=== PATIENT | female | born 1980 | race Hispanic/Latino ===

== ENCOUNTER → 2018-08-07 | Day surgery (SDC) | payer BC ==
[~2018-08-07] MED LIST: FENTANYL CITRATE/PF 100MCG/2 ML INJ ONE; METHOCARBAMOL750 MG PO; MIDAZOLAM HCL 2 MG/2 ML VIAL ONE; OMEPRAZOLE40 MG PO; PROPOFOL IV EMULSION 10 MG/ML 50 ML VIAL ONE
--- OUTSIDE RECORDS SUMMARY | 2018-08-07 06:32 | XMS REPORT | Summary of Care ---
Author Author [facility] Outpatient Imaging [facility] Outpatient Imaging [facility] Address Unknown Phone Unavailable Encounter HQ Encntr_alias(FIN) [id number] Date(s): 11/14/16 - 11/14/16 [facility] Outpatient Imaging [facility] [address] [place], [place] [address]- Discharge Disposition: Home or Self Care Attending Physician: Ty Crisostomo MD Vital Signs No data available for this section Problem List Condition Effective Dates Status Health Status Informant Lumbar Active pain(Confirmed) Obesity(Confirmed) Active Allergies, Adverse Reactions, Alerts No Known Medication Allergies Medications No data available for this section Results No data available for this section Immunizations No data available for this section Procedures No data available for this section Social History Social History Type Response Smoking Status Unknown if ever smoked; Exposure to Tobacco Smoke None; Cigarette Smoking Last 365 Days No; Reg Smoking Cessation Counseling No Assessment and Plan No data available for this section
--- OUTSIDE RECORDS SUMMARY | 2018-08-07 06:32 | XMS REPORT | Continuity of Care Document ---
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 osteophyte/calcification and disc material. SL: [id number] 11/30/2016 - - Read by: Patel Helms MD Dictated Date/time: 11/30/16 17:10 Electronically Signed by: Patel Helms MD 11/30/16 17:20 FINAL REPORT [facility] Outpatient Imaging [facility] Vital Signs Vital Sign Value Date Comments Source Weight 90.909 07/19/2017 [facility] BMI Calculated 33.35 07/19/2017 [facility] Height 165.1 cm 07/19/2017 [facility] Heart Rate 80 07/19/2017 [facility] Systolic (mm Hg) 160 07/19/2017 [facility] Diastolic (mm Hg) 96 07/19/2017 [facility] Systolic (mm Hg) 122 05/24/2017 [facility] Diastolic (mm Hg) 80 05/24/2017 [facility] Heart Rate 88 05/24/2017 [facility] Weight 90.909 05/24/2017 [facility] Temperature Oral (F) 98.1 F 02/28/2017 [facility] Respitory Rate 17 02/28/2017 [facility] Systolic (mm Hg) 128 02/28/2017 [facility] Diastolic (mm Hg) 75 02/28/2017 [facility] Heart Rate 93 02/28/2017 [facility] Systolic (mm Hg) 116 02/28/2017 [facility] Diastolic (mm Hg) 65 02/28/2017 [facility] Respitory Rate 17 02/28/2017 [facility] Temperature Oral (F) 98.1 F 02/28/2017 [facility] Heart Rate 80 02/28/2017 [facility] Weight 97.727 02/22/2017 [facility] BMI Calculated 35.85 02/22/2017 [facility] Height 165.1 cm 02/22/2017 [facility] BMI Calculated 33.35 02/04/2017 [facility] Weight 90.909 02/04/2017 [facility] Height 165.1 cm 02/04/2017 [facility] Encounters Location Location Details Encounter Type Encounter Number Reason For Visit Attending Provider ADM Date DC Date Status Source Outpatient [id number] LUIS RUIZ JR 11/09/[address] [facility] Outpatient [facility] Outpt Diag Services [id number] Luis Ruiz Jr 11/14/2016 11/15/2016 [facility] Outpatient Imaging [facility] Outpatient Imaging [facility] Outpt Diag Services [id number] Luis Ruiz Jr 11/30/2016 12/01/2016 [facility] Outpatient Imaging [facility] Outpatient [id number] LUIS RUIZ JR 01/18/2017 Active [facility] Outpatient [id number] LUIS RUIZ JR 02/27/2017 Active [facility] Inpatient [id number] Luis Ruiz Jr 02/27/2017 02/28/2017 [facility] Outpatient [id number] RENETTA DYKES 03/14/2017 Active [facility] Outpatient [id number] LUIS RUIZ JR 04/12/2017 Active [facility] Outpatient [id number] LUIS RUIZ JR 04/19/2017 Active [facility] [place] [facility] [id number] Luis Ruiz Jr 05/10/2017 06/09/2017 [facility] Outpatient [id number] LUIS RUIZ JR 05/24/2017 Active [facility] Outpatient [id number] Emili Ndiaye 05/24/2017 05/25/2017 [facility] Out[facility] Diag Services [id number] Luis Ruiz Jr 05/25/2017 05/26/2017 [facility] [place] [facility] [id number] Luis Ruiz Jr 06/09/2017 07/09/2017 [facility] Phone Message [id number] 06/19/2017 06/21/2017 [facility] Phone Message [id number] 06/20/2017 06/22/2017 [facility] Phone Message [id number] 07/11/2017 07/13/2017 [facility] Phone Message [id number] 07/13/2017 07/15/2017 [facility] Outpatient [id number] LUIS RUIZ JR 07/19/2017 Active [facility] Outpatient [id number] Emili Ndiaye 07/19/2017 07/20/2017 [facility] Outpatient Imaging [facility] Out Dia Services [id number] Luis Ruiz Jr 08/04/2017 08/05/2017 [facility] Phone Message [id number] 08/08/2017 08/10/2017 [facility] Phone Message [id number] 08/15/2017 08/17/2017 [facility] Outpatient [id number] LUIS RUIZ JR 08/16/2017 Active [facility] Ambulatory Pre-Reg [id number] Emilicharo OrtizNdiaye 08/16/2017 08/16/2017 [facility] Outpatient [id number] LUIS RUIZ JR 08/30/2017 Active [facility] Ambulatory Pre-Reg [id number] Emili Ndiaye 08/30/2017 08/30/2017 [facility] Outpatient [id number] LUIS RUIZ JR 02/21/2018 Active [facility] Procedures Procedure Code Date Perfomer Comments Source C5-T1 laminoplasty<sup>1</sup> [id number] 02/27/2017 C5-T1 laminoplasty [facility] C5-T1 laminoplasty<sup>1</sup> [id number] 02/27/2017 C5-T1 laminoplasty [facility] Outpatient Imaging [facility] C5-T1 laminoplasty<sup>1</sup> [id number] 02/27/2017 C5-T1 laminoplasty [facility] [place] section<sup>2</sup> [id number] 2013 [facility] TL - Tubal ligation [id number] [facility] section<sup>2</sup> [id number] 2013 [facility] TL - Tubal ligation [id number] [facility] Outpatient [facility] section<sup>2</sup> [id number] 2013 [facility] [place] TL - Tubal ligation [id number] [facility] [place] section<sup>1</sup> [id number] 2013 [facility] TL - Tubal ligation [id number] [facility]
--- OUTSIDE RECORDS SUMMARY | 2018-08-07 06:32 | XMS REPORT | Clinical Summary ---
Author Author [employer] [facility] [employer] Address Unknown Phone Unavailable Care Team Providers Care Business Control Manager Name Role Phone Emili Ndiaye MD PCP Allergies No Known Allergies Medications End Date Status Medication Sig Dispensed Refills Start Date 11/01/2017 Discontinued ibuprofen (ADVIL,MOTRIN) Take 200 mg 0 200 MG tablet by mouth every 12 (twelve) hours as needed for mild pain. LD 11/09/2017 amoxicillin-pot Take 1 tablet 20 tablet 0 clavulanate (AUGMENTIN) by mouth 8 875-125 mg per tablet every 12 (twelve) hours for 10 days. 11/09/2017 traMADol (ULTRAM) 50 mg Take 1 tablet 40 tablet 0 tablet (50 mg total) 8 by mouth every 6 (six) hours as needed for moderate pain for up to 10 days. 03/01/2018 Discontinued ondansetron ODT (ZOFRAN Take 1 tablet 10 tablet 0 ODT) 8 MG disintegrating (8 mg total) 8 tablet by mouth every 8 (eight) hours as needed for nausea or vomiting for up to 10 doses. Active Problems Problem Noted Date Mass in neck 10/31/2017 Encounters Care Team Description Date Type Specialty Zhanna Wagoner MD Anemia, normocytic normochromic 07/03/2018 Lab Lab Zhanna Wagoner MD Anemia, normocytic normochromic (Primary Dx) 07/03/2018 Office Visit Oncology Aditya Garces MD Lymphadenopathy 05/31/2018 Hospital Radiology Encounter Aditya Garces MD Lymphadenopathy 05/31/2018 Lab Lab Naz Waldron MA Lymphadenopathy (Primary Dx) 05/31/2018 Orders Only Oncology Aditya Garces MD 03/15/2018 Telephone Oncology Aditya Garces MD Lymphadenopathy (Primary Dx); Cervical lymphadenopathy 03/01/2018 Office Visit Oncology Aditya Garces MD 02/23/2018 Telephone Oncology Daniel Velazco MD Neck mass (Primary Dx) 12/04/2017 Office Visit Otolaryngology Daniel Velazco MD 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 General Internal Medicine - Encounter 11/01/2017 Gabrielle Greer RN 10/30/2017 Orders Only Otolaryngology Gabrielle Greer RN 10/24/2017 Orders Only Otolaryngology Daniel Velazco MD Neck mass (Primary Dx) 10/09/2017 Office Visit Otolarynjonilogy Aditya Garces MD Lymphadenopathy (Primary Dx) 09/28/2017 Office Visit Oncology Aditya Garces MD 09/27/2017 Telephone Oncology Aditya Garces MD Lymph node enlargement 09/22/2017 Hospital Radiology Encounter Aditya Garces MD Lymph node enlargement (Primary Dx) 09/19/2017 Transcribe Radiology Orders Aditya Garces MD 09/18/2017 Telephone Oncology Naz Waldron MA Cervical lymphadenopathy (Primary Dx) 09/15/2017 Orders Only Oncology Aditya Garces MD 09/14/2017 Telephone Oncology Aditya Garces MD Swelling of lymph node; Abnormal CT scan, neck 09/13/2017 Lab Lab Aditya Garces MD Swelling of lymph node; Abnormal CT scan, neck 09/12/2017 Hospital Radiology Encounter Aditya Garces MD Swelling of lymph node (Primary Dx); Abnormal CT scan, neck; Cervical lymphadenopathy 09/05/2017 Consult Oncology after 08/06/2017 Social History Date Tobacco Use Types Packs/Day Years Used Never Smoker Smokeless Tobacco: Never Used Alcohol Use Drinks/Week oz/Week Comments No Sex Assigned at Date Recorded Not on file Industry Job Start Date Occupation Not on file Not on file Not on file Travel End Travel History Travel Start No recent travel history available. Last Filed Vital Signs Time Taken Vital Sign Reading 07/03/2018 10:11 AM [facility] Blood Pressure 156/87 07/03/2018 10:11 AM [facility] [facility] Pulse 74 07/03/2018 10:11 AM [facility] [facility] [facility] Temperature 36.4 C (97.5 F) 11/01/2017 8:15 AM CDT Respiratory Rate 16 11/01/2017 8:15 AM CDT Oxygen Saturation 95% - Inhaled Oxygen - Concentration 07/03/2018 10:11 AM [facility] Weight 96.8 kg (213 lb 8 oz) 07/03/2018 10:11 AM [facility] Height 165.1 cm (5' 5") 07/03/2018 10:11 AM [facility] Body Mass Index 35.53 Plan of Treatment Health Maintenance Due Date Last Done Comments CERVICAL CANCER SCREENING 2000 INFLUENZA VACCINE 01/10/2018 04/05/2013 Implants Device Identifier Shelf Expiration Date Model / Serial / Lot Implanted Type Area Manufactur er [id number] / / Drain Wnd 20cm 7mm Flat Hbls Full Surgical N/A: N/A BARD Perfrtn Breana - [id number] Implants; MEDICAL Implanted: 10/31/2017 (Quantity not Expanders; DIVISION on file) Extenders; Surgical Wires Procedures Comments Procedure Name Priority Date/Time Associated Diagnosis HEMOGLOBIN Routine 07/03/2018 Anemia, normocytic ELECTROPHORESIS WITH HGB 11:25 AM [facility] [facility] normochromic HCT AND RBC SERUM ELECTROPHORESIS Routine 07/03/2018 Anemia, normocytic 11:25 AM [employer] normochromic RETICULOCYTE COUNT Routine 07/03/2018 Anemia, normocytic 11:25 AM [employer] normochromic VITAMIN B12 LEVEL Routine 07/03/2018 Anemia, normocytic 11:25 AM [employer] normochromic THYROID STIMULATING Routine 07/03/2018 Anemia, normocytic HORMONE 11:25 AM [employer] normochromic FOLATE LEVEL Routine 07/03/2018 Anemia, normocytic 11:25 AM [employer] normochromic TOTAL IRON BINDING Routine 07/03/2018 Anemia, normocytic CAPACITY 11:25 AM [employer] [facility] normochromic FERRITIN LEVEL Routine 07/03/2018 Anemia, normocytic 11:25 AM [employer] normochromic HC COMPLETE BLD COUNT Routine 07/03/2018 Anemia, normocytic W/AUTO DIFF 11:25 AM [facility] [facility] [facility] normochromic CT CHEST W CONTRAST Routine 05/31/2018 Lymphadenopathy ABDOMEN W CONTRAST PELVIS 12:07 PM [employer] [facility] W CONTRAST ESTIMATED GFR Routine 05/31/2018 10:33 AM [facility] [facility] BETA-2 MICROGLOBULIN Routine 05/31/2018 Lymphadenopathy 10:33 AM [employer] [facility] SEDIMENTATION RATE Routine 05/31/2018 Lymphadenopathy 10:33 AM [employer] HC COMPLETE BLD COUNT Routine 05/31/2018 Lymphadenopathy W/AUTO DIFF 10:33 AM [facility] [facility] [facility] URIC ACID LEVEL Routine 05/31/2018 Lymphadenopathy 10:33 AM [facility] [facility] PHOSPHORUS LEVEL Routine 05/31/2018 Lymphadenopathy 10:33 AM [employer] LDH Routine 05/31/2018 Lymphadenopathy 10:33 AM [facility] [facility] COMPREHENSIVE METABOLIC Routine 05/31/2018 Lymphadenopathy PANEL 10:33 AM [facility] [facility] GGT Routine 05/31/2018 Lymphadenopathy 10:33 AM [facility] [facility] [facility] FUNGUS SMEAR Routine 10/31/2017 6:23 PM CDT AFB STAIN Routine 10/31/2017 6:23 PM CDT AFB CULTURE Routine 10/31/2017 6:23 PM CDT GRAM STAIN Routine 10/31/2017 6:23 PM CDT FUNGUS CULTURE Routine 10/31/2017 6:23 PM CDT AEROBIC CULTURE Routine 10/31/2017 6:23 PM CDT ANAEROBIC CULTURE Routine 10/31/2017 6:23 PM CDT SURGICAL PATHOLOGY Routine 10/31/2017 REQUEST 2:30 PM CDT FLOW CYTOMETRY EVALUATION Routine 10/31/2017 2:30 PM CDT ANAEROBIC CULTURE Routine 10/31/2017 1:23 PM CDT GRAM STAIN Routine 10/31/2017 1:23 PM CDT AEROBIC CULTURE Routine 10/31/2017 1:23 PM CDT RI AN ELECTIVE Routine 10/31/2017 ENDOTRACHEAL AIRWAY 12:52 PM CDT Procedure Note - Antoinette Menchaca MD - 10/31/2017 12:52 PM CDT Airway Date/Time: 10/31/2017 12:45 PM Performed by: ANTOINETTE MENCHACA Authorized by: ANTOINETTE MENCHACA Location: OR Urgency: Elective Difficult Airway: Yes Anesthesio logist: ANTOINETTE MENCHACA Performed by: anesthesio logist Preoxygena aminata with 100% O2: Yes C-spine Precaution s Maintained Throughout : Yes Mask Ventilatio n: Easy mask Final Airway Type: Endotrache al airway Final Endotrache al Airway: ETT Cuffed: Yes Technique Used: Video laryngosco py Devices/Me thods Used in Placement: Intubatin g stylet Insertion Site: Oral Blade Type: Jessica Laryngosco pe Blade/Vide olaryngosc ope Blade Size: 3 ETT Size (mm): 7.0 Cuff at minimum occlusion pressure: Yes Measured from: Lips ETT to Lips (cm): 22 Placement Verified by: CO2 detection, direct visualizat ion, equal breath sounds and fiber optic visualizat ion Laryngosco pic view: Grade I - full view of glottis Modified RSI: Yes Number of Attempts at Approach: 1 DISSECTION, NECK, 10/31/2017 Mass in neck MODIFIED RADICAL 12:45 PM CDT Case Notes TF 1130 REQ 0800 START POSSIBLE EXTENDED RECOVERY NEEDED Special Needs TF 1130 REQ 0800 START POSSIBLE EXTENDED RECOVERY NEEDED ZZESTIMATED GFR STAT 10/31/2017 11:28 AM CDT BASIC METABOLIC PANEL STAT 10/31/2017 11:28 AM CDT HC COMPLETE BLD COUNT STAT 10/31/2017 W/AUTO DIFF 11:09 AM CDT SURGICAL PATHOLOGY Routine 09/22/2017 REQUEST 2:45 PM CDT GRAM STAIN Routine 09/22/2017 2:36 PM CDT ANAEROBIC CULTURE Routine 09/22/2017 2:36 PM CDT AEROBIC CULTURE Routine 09/22/2017 2:36 PM CDT US NEEDLE BIOPSY Routine 09/22/2017 Lymph node enlargement 1:21 PM CDT CYTOLOGY Routine 09/22/2017 (NON-GYNECOLOGICAL) 12:45 PM CDT REQUEST CYTOLOGY Routine 09/22/2017 (NON-GYNECOLOGICAL) 12:45 PM CDT REQUEST FLOW CYTOMETRY EVALUATION Routine 09/22/2017 12:45 PM CDT ZZESTIMATED GFR Routine 09/13/2017 4:01 PM CDT PROTHROMBIN TIME WITH INR Routine 09/13/2017 Swelling of lymph node 4:[address] scan, neck PARTIAL THROMBOPLASTIN Routine 09/13/2017 Swelling of lymph node TIME (PTT) 4:[address] scan, neck SEDIMENTATION RATE Routine 09/13/2017 Swelling of lymph node 4:[address] scan, neck BETA-2 MICROGLOBULIN Routine 09/13/2017 Swelling of lymph node 4:[address] scan, neck HC COMPLETE BLD COUNT Routine 09/13/2017 Swelling of lymph node W/AUTO DIFF 4:[address] scan, neck URIC ACID LEVEL Routine 09/13/2017 Swelling of lymph node 4:[address] scan, neck PHOSPHORUS LEVEL Routine 09/13/2017 Swelling of lymph node 4:[address] scan, neck LDH Routine 09/13/2017 Swelling of lymph node 4:[address] scan, neck COMPREHENSIVE METABOLIC Routine 09/13/2017 Swelling of lymph node PANEL 4:[address] scan, neck GGT Routine 09/13/2017 Swelling of lymph node 4:[address] scan, neck PET CT SKULL BASE TO MID Routine 09/12/2017 Swelling of lymph node THIGH 12:[address] scan, neck POC GLUCOSE Routine 09/12/2017 11:13 AM CDT after 08/06/2017 Results * Hemoglobin electrophoresis with HGB HCT and RBC (07/03/2018 11:25 AM [employer] [facility]) Hemoglobin A 97.7 96.0 - 99.0 % [facility] Hemoglobin A2 2.3 0.0 - 3.5 % [facility] Hemoglobin See Comment [facility] electrophoresis Comment: HOSPITAL interpretation No abnormal hemoglobins are detected. This is a normal hemoglobin electrophoresis pattern. Hemoglobin See CommentComment: Sofia Bradford [facility] electrophoresis reviewed MD Tasha, DREAD [place], HOSPITAL by: Charlee Slater MD, Barbie Vázquez MD RBC for electrophoresis 4.10 (L) 4.20 - 5.50 m/uL [facility] HGB for electrophoresis 11.0 (L) 12.0 - 16.0 g/dL [facility] HCT for electrophoresis 34.3 (L) 37.0 - 47.0 % [facility] Specimen Blood Performing Organization Address City/State/Zipcode Phone Number [facility] DEPARTMENT OF [address] [place] [address] PATHOLOGY AND GENOMIC MEDICINE [address] * Total iron binding capacity (07/03/2018 11:25 AM [facility] [facility] [facility]) Iron level 67 37 - 145 ug/dL [facility] Iron binding capacity 493 (H) 200 - 400 ug/dL [facility] % Saturation 13.6 (L) 15.0 - 38.0 % [facility] Specimen Plasma specimen Performing Organization Address [facility] Phone Number [facility] [place] [address] PATHOLOGY AND GENOMIC MEDICINE [address] * Reticulocyte count (07/03/2018 11:25 AM [facility] [facility] [facility]) Retic %, auto 1.7 0.5 - 2.1 % [facility] Retic absolute, auto 0.0709 0.0210 - 0.1155 m/uL [facility] Specimen Blood Performing Organization Address [facility] Phone Number [facility] [place] [address] PATHOLOGY AND [facility] MEDICINE [address] * CBC with platelet and differential (07/03/2018 11:25 AM [employer] [facility]) Only the most recent of 4 results within the time period is included. WBC 7.57 4.50 - 11.00 k/uL [facility] RBC 4.10 (L) 4.20 - 5.50 m/uL [facility] HGB 11.0 (L) 12.0 - 16.0 g/dL [facility] HCT 34.3 (L) 37.0 - 47.0 % [facility] MCV 83.7 82.0 - 100.0 fL [facility] MCH 26.8 (L) 27.0 - 34.0 pg [facility] MCHC 32.1 31.0 - 37.0 g/dL [facility] RDW - SD 45.5 37.0 - 55.0 fL [facility] MPV 11.2 8.8 - 13.2 fL [facility] Platelet count 313 150 - 400 k/uL [facility] Nucleated RBC 0.00 /100 WBC [facility] Neutrophils 61.1 39.0 - 69.0 % [facility] Lymphocytes 26.2 25.0 - 45.0 % [facility] Monocytes 8.9 0.0 - 10.0 % [facility] Eosinophils 3.0 0.0 - 5.0 % [facility] Basophils 0.4 0.0 - 1.0 % [facility] Immature granulocytes 0.4Comment: "Immature 0.0 - 1.0 % [facility] granulocytes" (promyelocytes, HOSPITAL myelocytes, metamyelocytes) Specimen Blood Performing Organization Address [place]/[facility] [place] [address] PATHOLOGY AND GENOMIC MEDICINE [address] * Thyroid stimulating hormone (07/03/2018 11:25 AM [facility] [facility] [facility]) TSH 1.49 0.27 - 4.20 uIU/mL [facility] Specimen Plasma specimen Performing Organization Address [facility] [place] [address] PATHOLOGY AND [facility] MEDICINE [address] * Serum electrophoresis (07/03/2018 11:25 AM [employer] [facility]) Protein 7.2 6.3 - 8.3 g/dL [facility] Comment: HOSPITAL [place] 4.6-7.0 g/dL 1 week 4.4-7.6 g/dL 7 months-1year 5.1-7.3 g/dL 1-2 years5.6-7 .5 g/dL >3 years6.0-8 .0 g/dL 18-150 6.3-8.3 g/dL SPE albumin 4.67 4.00 - 5.30 g/dL [facility] SPE alpha 1 0.15 0.10 - 0.25 g/dL [facility] SPE alpha 2 0.68 0.58 - 0.84 g/dL [facility] SPE beta 0.94 0.50 - 1.10 g/dL [facility] SPE gamma 0.77 0.60 - 1.30 g/dL [facility] SPE extended See CommentComment: An [facility] interpretation essentially normal serum [facility] protein study. SPE interpretation See CommentComment: Sia Mello MD; Samara Snow, PhD; [facility] René Rouse MD Specimen Serum Performing Organization Address [facility] Phone Number [facility] [place] [address] PATHOLOGY AND GENOMIC MEDICINE [address] * Folate level (07/03/2018 11:25 AM [facility] [facility] [facility]) Folate 11.8 4.8 - 24.2 ng/mL [facility] Specimen Serum Performing Organization Address City/State/Zipcode Phone Number [facility] [place] [address] PATHOLOGY AND GENOMIC MEDICINE [address] * Ferritin level (07/03/2018 11:25 AM [employer] [facility]) Ferritin level <13 (A) 13 - 150 ng/mL [facility] Specimen Plasma specimen Performing Organization Address City/[facility]/Zipcode Phone Number [facility] [place] [address] PATHOLOGY AND GENOMIC MEDICINE [address] * Vitamin B12 level (07/03/2018 11:25 AM [employer] [facility]) Vitamin B12 789 211 - 946 pg/mL [facility] Comment: HOSPITAL Significant overlap exists between normal and deficiency states. However, most patients with deficiencies will have Serum B12 <200 pg/mL. Specimen Serum Performing Organization Address City/[facility] Phone Number [facility] [place] [address] PATHOLOGY AND GENOMIC MEDICINE [address] * CT Chest W Contrast Abdomen W Contrast Pelvis W Contrast (05/31/2018 12:07 PM [employer] [facility] [facility]) Narrative Performed At EXAMINATION:CT CHEST W CONTRAST ABDOMEN W CONTRAST PELVIS W CONTRAST RADIANT CLINICAL HISTORY:R59.1 Generalized enlarged lymph nodes, r59.1 COMPARISON:PET/CT skull base to mid thigh from September 12, 2017 TECHNIQUE:CT of the chest, abdomen and pelvis with intravenous contrast. CT imaging was performed with iterative reconstruction techniques and/or automated exposure control to reduce radiation dose. FINDINGS: CHEST: LUNGS and PLEURA:Lungs and airways are normal without focal abnormality. Pleural spaces are clear. HEART and MEDIASTINUM:Thoracic aorta nonaneurysmal. No mediastinal or hilar adenopathy. Heart and pericardium within normal limits. ABDOMEN AND PELVIS: HEPATOBILIARY:No focal hepatic lesions. No biliary ductal dilation. Gallbladder is unremarkable. SPLEEN:No splenomegaly. PANCREAS:No focal masses or ductal dilation. ADRENALS:No adrenal nodules. KIDNEYS:No hydronephrosis, stones or solid masses. GI TRACT:Visualized portions of the bowel demonstrate no distention or wall thickening. The appendix is normal. There is a small fat-containing umbilical hernia. PERITONEUM/RETROPERITONEUM:No free air or fluid. No lymphadenopathy. PELVIC ORGANS/BLADDER:Unremarkable. BONES AND SOFT TISSUES:Unremarkable. IMPRESSION: No lymphadenopathy is identified in the thorax, abdomen, or pelvis. Additional findings as above. Edilberto Matamoros MD Diet Kitchen Cook, PGY - 2 I personally reviewed the images and the resident's findings and agree with the final report. [id number] Procedure Note Interface, Radiology Results Incoming - 05/31/2018 3:53 PM [facility] [facility] [facility] EXAMINATION: CT CHEST W CONTRAST ABDOMEN W CONTRAST PELVIS W CONTRAST CLINICAL HISTORY: R59.1 Generalized enlarged lymph nodes, r59.1 COMPARISON: PET/CT skull base to mid thigh from September 12, 2017 TECHNIQUE: CT of the chest, abdomen and pelvis with intravenous contrast. CT imaging was performed with iterative reconstruction techniques and/or automated exposure control to reduce radiation dose. FINDINGS: CHEST: LUNGS and PLEURA: Lungs and airways are normal without focal abnormality. Pleural spaces are clear. HEART and MEDIASTINUM: Thoracic aorta nonaneurysmal. No mediastinal or hilar adenopathy. Heart and pericardium within normal limits. ABDOMEN AND PELVIS: HEPATOBILIARY: No focal hepatic lesions. No biliary ductal dilation. Gallbladder is unremarkable. SPLEEN: No splenomegaly. PANCREAS: No focal masses or ductal dilation. ADRENALS: No adrenal nodules. KIDNEYS: No hydronephrosis, stones or solid masses. GI TRACT: Visualized portions of the bowel demonstrate no distention or wall thickening. The appendix is normal. There is a small fat-containing umbilical hernia. PERITONEUM/RETROPERITONEUM: No free air or fluid. No lymphadenopathy. PELVIC ORGANS/BLADDER: Unremarkable. BONES AND SOFT TISSUES: Unremarkable. IMPRESSION: No lymphadenopathy is identified in the thorax, abdomen, or pelvis. Additional findings as above. Edilberto Matamoros MD Diet [employer] Cook, PGY - 2 I personally reviewed the images and the resident's findings and agree with the final report. [facility]-[id number] Performing Organization Address City/State/Zipcode Phone Number [facility] [address] [place] [address] * Estimated GFR (05/31/2018 10:33 AM [employer]) Estimated GFR >=90 mL/min/1.73 m2 [facility] Comment: HOSPITAL CatergoryUnitsInte rpretation G1 >=90 Normal or high G2 60-89Mildly decreased [id number] Mildly to moderately decreased [id number] Moderately to severely decreased G4 15-29Severely decreased G5 <15Kidney failure The eGFR was calculated using the Chronic Kidney Disease Epidemiology Collaboration (CKD-EPI) equation. Interpretation is based on recommendations of the National Kidney Foundation-Kidney Disease Outcomes Quality Initiative (NKF-KDOQI) published in 2014. Specimen Plasma specimen Performing Organization Address City/[facility] Phone Number [facility] [place] [address] PATHOLOGY AND [facility] MEDICINE [address] * Sedimentation rate (05/31/2018 10:33 AM [employer]) Only the most recent of 2 results within the time period is included. Sedimentation rate 14 0 - 20 mm/hr [facility] Specimen Blood Performing Organization Address City/[facility] Phone Number [facility] [place] [address] PATHOLOGY AND GENOMIC MEDICINE [address] * Uric acid level (05/31/2018 10:33 AM [employer]) Only the most recent of 2 results within the time period is included. Uric acid 4.4 2.4 - 5.7 mg/dL [facility] Specimen Plasma specimen Performing Organization Address City/[facility] Phone Number [facility] [place] [address] PATHOLOGY AND GENOMIC MEDICINE [address] * Phosphorus level (05/31/2018 10:33 AM [employer]) Only the most recent of 2 results within the time period is included. Phosphorus 3.1 2.4 - 4.5 mg/dL [facility] Specimen Plasma specimen Performing Organization Address City/[facility] Phone Number [facility] [place] [address] PATHOLOGY AND GENOMIC MEDICINE [address] * LDH (05/31/2018 10:33 AM [employer]) Only the most recent of 2 results within the time period is included. LDH 167 87 - 225 U/L [facility] Specimen Plasma specimen Performing Organization Address City/[facility] Phone Number [facility] DEPARTMENT OF [address] [place] [address] PATHOLOGY AND GENOMIC MEDICINE [address] * GGT (05/31/2018 10:33 AM [employer]) Only the most recent of 2 results within the time period is included. GGT 14 0 - 39 U/L [facility] Specimen Plasma specimen Performing Organization Address City/[facility] Phone Number [facility] [place] [address] PATHOLOGY AND GENOMIC MEDICINE [address] * Beta-2 microglobulin (05/31/2018 10:33 AM [employer]) Only the most recent of 2 results within the time period is included. Beta-2 microglobulin 1.4 0.8 - 2.2 mg/L [facility] Specimen Plasma specimen Performing Organization Address [place]/[facility] Phone Number [facility] DEPARTMENT OF [address] [place] [address] PATHOLOGY AND GENOMIC MEDICINE [address] * Comprehensive metabolic panel (05/31/2018 10:33 AM [employer]) Only the most recent of 2 results within the time period is included. Sodium 143 135 - 148 mEq/L [facility] Potassium 3.7 3.5 - 5.0 mEq/L [facility] Chloride 106 98 - 112 mEq/L [facility] CO2 22 (L) 24 - 31 mEq/L [facility] Anion gap 15@ANIO 7 - 15 mEq/L [facility] BUN 6 6 - 20 mg/dL [facility] Creatinine 0.52 0.50 - 0.90 mg/dL [facility] Glucose 103 (H) 65 - 99 mg/dL [facility] Calcium 9.0 8.3 - 10.2 mg/dL [facility] [facility] Protein 7.0 6.3 - 8.3 g/dL [facility] Comment: [facility] 4.6-7.0 g/dL 1 week 4.4-7.6 g/dL 7 months-1year 5.1-7.3 g/dL 1-2 years5.6-7 .5 g/dL >3 years6.0-8 .0 g/dL 18-150 6.3-8.3 g/dL Albumin 3.9 3.5 - 5.0 g/dL [facility] A/G ratio 1.3 0.7 - 3.8 [facility] Alkaline phosphatase 75 35 - 104 U/L [facility] AST 27 10 - 35 U/L [facility] ALT 45 5 - 50 U/L [facility] Total bilirubin 0.3 0.0 - 1.2 mg/dL [facility] Specimen Plasma specimen Performing Organization Address [facility] Phone Number [facility] [place] [address] PATHOLOGY AND GENOMIC MEDICINE [address] * Fungus smear (10/31/2017 6:23 PM CDT) Fungus smear No fungi observed. [facility] DEPARTMENT OF Comment: PATHOLOGY AND Specimen Information GENOMIC MEDICINE Specimen Source: Tissue Specimen Site: Right neck lymph node Specimen Tissue Performing Organization Address [facility] Phone Number [facility] [place] [address] PATHOLOGY AND GENOMIC MEDICINE * AFB culture (10/31/2017 6:23 PM CDT) AFB culture isolate No growth after 6 weeks of [facility] DEPARTMENT OF incubation. PATHOLOGY AND Comment: GENOMIC MEDICINE Specimen Information Specimen Source: Tissue Specimen Site: Right neck lymph node Specimen Tissue Performing Organization Address [facility] Phone Number [facility] [place] [address] PATHOLOGY AND GENOMIC MEDICINE * Aerobic culture (10/31/2017 6:23 PM CDT) Only the most recent of 3 results within the time period is included. Aerobic culture isolate No growth after 3 days. [facility] DEPARTMENT OF Comment: PATHOLOGY AND Specimen Information GENOMIC MEDICINE Specimen Source: Tissue Specimen Site: Right neck lymph node Specimen Tissue Performing Organization Address [facility] Phone Number [facility] [place] [address] PATHOLOGY AND GENOMIC MEDICINE * Gram stain (10/31/2017 6:23 PM CDT) Only the most recent of 3 results within the time period is included. Gram stain isolate Occasional WBC's [facility] DEPARTMENT OF No organisms seen PATHOLOGY AND Comment: GENOMIC MEDICINE Specimen Information Specimen Source: Tissue Specimen Site: Right neck lymph node Specimen Tissue Performing Organization Address City/[facility]/Zipcode Phone Number [facility] DEPARTMENT OF [address] [place] [address] PATHOLOGY AND GENOMIC MEDICINE * AFB stain (10/31/2017 6:23 PM CDT) AFB stain No acid fast bacilli (AFB) [facility] DEPARTMENT OF seen. PATHOLOGY AND Comment: GENOMIC MEDICINE Specimen Information Specimen Source: Tissue Specimen Site: Right neck lymph node Specimen Tissue Performing Organization Address City/[facility] Phone Number [facility] [place] [address] PATHOLOGY AND GENOMIC MEDICINE * Fungus culture (10/31/2017 6:23 PM CDT) Fungus culture isolate No growth after 4 weeks of [facility] DEPARTMENT OF incubation. PATHOLOGY AND Comment: GENOMIC MEDICINE Specimen Information Specimen Source: Tissue Specimen Site: Right neck lymph node Specimen Tissue Performing Organization Address City/[facility] Phone Number [facility] DEPARTMENT OF [address] [place] [address] PATHOLOGY AND GENOMIC MEDICINE * Anaerobic culture (10/31/2017 6:23 PM CDT) Only the most recent of 3 results within the time period is included. Anaerobic culture isolate No anaerobic organisms [facility] DEPARTMENT OF isolated. PATHOLOGY AND Comment: GENOMIC MEDICINE Specimen Information Specimen Source: Tissue Specimen Site: Right neck lymph node Specimen Tissue Performing Organization Address City/[facility] Phone Number [facility] DEPARTMENT OF [address] [place] [address] PATHOLOGY AND GENOMIC MEDICINE * Flow cytometry evaluation (10/31/2017 2:30 PM CDT) Only the most recent of 2 results within the time period is included. [facility] DEPARTMENT OF PATHOLOGY AND GENOMIC MEDICINE Flow cytometry evaluation See link below for PDF Lab [facility] DEPARTMENT OF Report PATHOLOGY AND GENOMIC MEDICINE Performing Organization Address City/[facility]/Zipcode Phone Number [facility] DEPARTMENT OF [address] [place] [address] PATHOLOGY AND GENOMIC MEDICINE * Surgical pathology request (10/31/2017 2:30 PM CDT) Only the most recent of 2 results within the time period is included. [facility] DEPARTMENT OF PATHOLOGY AND GENOMIC MEDICINE Surgical pathology report See link below for PDF Lab [facility] DEPARTMENT OF Report PATHOLOGY AND GENOMIC MEDICINE Result status This is Final Report to [facility] DEPARTMENT OF [id number] PATHOLOGY AND GENOMIC MEDICINE Performing Organization Address [facility] [address] PATHOLOGY AND GENOMIC MEDICINE * Estimated GFR (10/31/2017 11:28 AM CDT) Only the most recent of 2 results within the time period is included. GFR Non Af Amer >90 mL/min/1.73 m2 [facility] DEPARTMENT OF PATHOLOGY AND GENOMIC MEDICINE GFR Af Amer >90 mL/min/1.73 m2 [facility] DEPARTMENT OF Comment: PATHOLOGY AND Chronic kidney disease: <60 GENOMIC MEDICINE mL/min/1.73m2 Kidney failure: <15 mL/min/1.73m2 The estimated GFR is calculated from the IDMS-traceable Modification of Diet in Renal Disease Equation. The accuracy of the calculation is poor when the creatinine is normal. Calculated values >90 mL/min/1.73m2 are not reported. This equation has not been validated in children (<18 years), women, the elderly (>70 years), or ethnic groups other than Caucasians and Americans. Specimen Plasma specimen Performing Organization Address City/[facility] Cent[facility] [address] PATHOLOGY AND [facility] MEDICINE * Basic metabolic panel (10/31/2017 11:28 AM CDT) Sodium 140 135 - 148 mEq/L [facility] DEPARTMENT OF PATHOLOGY AND GENOMIC MEDICINE Potassium 4.4 3.5 - 5.0 mEq/L [facility] DEPARTMENT OF PATHOLOGY AND GENOMIC MEDICINE Chloride 101 98 - 112 mEq/L [facility] DEPARTMENT OF PATHOLOGY AND GENOMIC MEDICINE CO2 23 (L) 24 - 31 mEq/L [facility] DEPARTMENT OF PATHOLOGY AND GENOMIC MEDICINE Anion gap 16@ANIO (H) 7 - 15 mEq/L [facility] DEPARTMENT OF PATHOLOGY AND GENOMIC MEDICINE BUN 7 6 - 20 mg/dL [facility] DEPARTMENT OF PATHOLOGY AND GENOMIC MEDICINE Creatinine 0.5 0.5 - 0.9 mg/dL [facility] DEPARTMENT OF PATHOLOGY AND GENOMIC MEDICINE Glucose 100 (H) 65 - 99 mg/dL [facility] DEPARTMENT OF PATHOLOGY AND GENOMIC MEDICINE Calcium 8.8 8.3 - 10.2 mg/dL [facility] DEPARTMENT OF PATHOLOGY AND GENOMIC MEDICINE Specimen Plasma specimen Performing Organization Address City/State/Zipcode Phone Number [facility] DEPARTMENT OF [address] [place] [address] PATHOLOGY AND GENOMIC MEDICINE * US Needle Biopsy (09/22/2017 1:21 PM CDT) Narrative Performed At EXAMINATION:US NEEDLE BIOPSY RADIANT CLINICAL HISTORY:R59.9 Enlarged lymph nodesunspecified, R59.9 TECHNIQUE: The risks, benefits, and alternatives were discussed with the patient and written informed consent was obtained. Limited ultrasound of the right neck performed. A site for needle entry was selected and the skin was prepped and draped in the usual sterile fashion. Maximal sterile barrier technique was implemented. After local administration of 1% buffered lidocaine, a tiny dermatotomy was made. Then, using real-time ultrasound guidance, a 25-gauge spinal needle was advanced and fine-needle aspiration obtained, total of 3 passes made. Then, 19 gauge 10cm long trocar and stylet were advanced to the level of the lesion . Then, the stylet was removed and a 20 gauge 10cm long Temno biopsy device was advanced via the trocar into the lesion. A 1.5 cm biopsy tray was advanced. A biopsy was obtained, total of 4 samples were obtained. The biopsy device was removed and sterile dressing was applied. The specimens were reviewed with pathology and were deemed adequate. Sterile dressing was applied. The patient was discharged to the radiology recovery area for monitoring prior to discharge. EBL: <5 cc. Complications: None. FINDINGS: There is a heterogeneous mass seen in the right upper neck measuring approximately 3.9 cm. IMPRESSION: Ultrasound-guided biopsy of right neck mass. No immediate complications. [facility]-[id number] Procedure Note Interface, Radiology Results Incoming - 09/22/2017 4:08 PM CDT EXAMINATION: US NEEDLE BIOPSY CLINICAL HISTORY: R59.9 Enlarged lymph nodes unspecified, R59.9 TECHNIQUE: The risks, benefits, and alternatives were discussed with the patient and written informed consent was obtained. Limited ultrasound of the right neck performed. A site for needle entry was selected and the skin was prepped and draped in the usual sterile fashion. Maximal sterile barrier technique was implemented. After local administration of 1% buffered lidocaine, a tiny dermatotomy was made. Then, using real-time ultrasound guidance, a 25-gauge spinal needle was advanced and fine-needle aspiration obtained, total of 3 passes made. Then, 19 gauge 10 cm long trocar and stylet were advanced to the level of the lesion . Then, the stylet was removed and a 20 gauge 10 cm long Temno biopsy device was advanced via the trocar into the lesion. A 1.5 cm biopsy tray was advanced. A biopsy was obtained, total of 4 samples were obtained. The biopsy device was removed and sterile dressing was applied. The specimens were reviewed with pathology and were deemed adequate. Sterile dressing was applied. The patient was discharged to the radiology recovery area for monitoring prior to discharge. EBL: <5 cc. Complications: None. FINDINGS: There is a heterogeneous mass seen in the right upper neck measuring approximately 3.9 cm. IMPRESSION: Ultrasound-guided biopsy of right neck mass. No immediate complications. [facility]-[id number] Performing Organization Address [facility] [place] [address] * Cytology (non-gynecological) request (09/22/2017 12:45 PM CDT) Only the most recent of 2 results within the time period is included. [facility] DEPARTMENT OF PATHOLOGY AND GENOMIC MEDICINE Cytology See link below for PDF Lab [facility] DEPARTMENT OF (non-gynecological) Report PATHOLOGY AND report GENOMIC MEDICINE Result status This is Final Report to [facility] DEPARTMENT OF [id number] PATHOLOGY AND GENOMIC MEDICINE Performing Organization Address [facility] Phone Number [address] [address] PATHOLOGY AND GENOMIC MEDICINE * Partial thromboplastin time, activated (09/13/2017 4:01 PM CDT) PTT 30.8 23.0 - 36.0 sec [facility] DEPARTMENT OF Comment: PATHOLOGY AND PTT therapeutic range for GENOMIC MEDICINE unfractionated heparin is 61.0-112.0 seconds which corresponds to Anti-Xa 0.3-0.7 U/ml. Specimen Blood Performing Organization Address [facility] Phone Number [address] [address] PATHOLOGY AND GENOMIC MEDICINE * Prothrombin time with INR (09/13/2017 4:01 PM CDT) Prothrombin time 13.9 12.0 - 15.0 sec [facility] DEPARTMENT OF PATHOLOGY AND GENOMIC MEDICINE INR 1.1 [facility] DEPARTMENT OF Comment: PATHOLOGY AND The International Normalized GENOMIC MEDICINE Ratio (INR) is a therapeutic monitoring tool for patients who are stable on oral anticoagulant therapy. An INR of 2.0-3.0 is suggested for deep vein thrombosis/pulmonary embolism. Specimen Blood Performing Organization Address City/State/Zipcode Phone Number [facility] DEPARTMENT OF [address] [place] [address] PATHOLOGY AND GENOMIC MEDICINE * PET/CT Skull Base To Mid Thigh (09/12/2017 12:50 PM CDT) Narrative Performed At PROCEDURE: PET CT SKULL BASE TO MID THIGH RADIANT INDICATION: R59.9 Enlarged lymph nodesunspecified, R93.8 Abnormal findings on diagnostic imaging of other specified body structures, right cervical node staging for lymphoma COMPARISON: No comparison examinations at this institution TECHNIQUE: Blood glucose measured at the time of injection was 104 mg/dL. The patient was then intravenously injected with 11 mCi of 18F-FDG. Approximately one hour later, PET images were acquired from the skull base to the mid thighs. Corresponding, low dose, non-contrast CT scanning was performed as part of the attenuation correction process. FINDINGS: Head and neck: Partially necrotic kassi conglomerate in the right level 2A station measures 3.6 x 2.0 cm and demonstrates marked FDG uptake with a maximum SUV of 8.9. Multiple tiny bilateral lymph nodes are seen in the level 1, 2, and 3 stations, all either close to or below the detection threshold in size for PET. Remainder of the imaged head and neck reveals physiological cerebral and cerebellar metabolism. Small right maxillary sinus nodular density is noted without focal inflammation, likely benign. Chest: There are no hypermetabolic pulmonary lesions. No FDG-avid mediastinal or hilar lymphadenopathy is seen. There is no abnormal FDG uptake in the breasts and axillae. Abdomen: The liver, spleen, pancreas, and adrenals demonstrate physiological metabolism without evidence of focal lesions. Gastrointestinal metabolism is within normal limits. Tiny nonspecific retroperitoneal lymph nodes demonstrate no focal hypermetabolism. No FDG-avid mesenteric lesions are seen. Renal excretion of radiotracer is noted. Pelvis: Physiological metabolism is noted in the uterus and adnexa. No FDG-avid pelvic sidewall lymphadenopathy is seen. Tiny nonspecific bilateral inguinal lymph nodes demonstrate no focal FDG uptake. Musculoskeletal: No destructive or FDG-avid osseous lesions are seen. Postoperative changes in the posterior cervical spine are noted. IMPRESSION: 1.Partially necrotic kassi mass in the right level 2A station of the neck demonstrates marked hypermetabolism, compatible with provided history of lymphoma. 2.There are multiple tiny bilateral cervical lymph nodes that are too small to accurately characterize with PET. 3.No FDG-avid lesions identified elsewhere. [id number] Procedure Note [facility], Radiology Results Incoming - 09/12/2017 3:58 PM CDT PROCEDURE: PET CT SKULL BASE TO MID THIGH INDICATION: R59.9 Enlarged lymph nodes unspecified, R93.8 Abnormal findings on diagnostic imaging of other specified body structures, right cervical node staging for lymphoma COMPARISON: No comparison examinations at this institution TECHNIQUE: Blood glucose measured at the time of injection was 104 mg/dL. The patient was then intravenously injected with 11 mCi of 18F-FDG. Approximately one hour later, PET images were acquired from the skull base to the mid thighs. Corresponding, low dose, non-contrast CT scanning was performed as part of the attenuation correction process. FINDINGS: Head and neck: Partially necrotic kassi conglomerate in the right level 2A station measures 3.6 x 2.0 cm and demonstrates marked FDG uptake with a maximum SUV of 8.9. Multiple tiny bilateral lymph nodes are seen in the level 1, 2, and 3 stations, all either close to or below the detection threshold in size for PET. Remainder of the imaged head and neck reveals physiological cerebral and cerebellar metabolism. Small right maxillary sinus nodular density is noted without focal inflammation, likely benign. Chest: There are no hypermetabolic pulmonary lesions. No FDG-avid mediastinal or hilar lymphadenopathy is seen. There is no abnormal FDG uptake in the breasts and axillae. Abdomen: The liver, spleen, pancreas, and adrenals demonstrate physiological metabolism without evidence of focal lesions. Gastrointestinal metabolism is within normal limits. Tiny nonspecific retroperitoneal lymph nodes demonstrate no focal hypermetabolism. No FDG-avid mesenteric lesions are seen. Renal excretion of radiotracer is noted. Pelvis: Physiological metabolism is noted in the uterus and adnexa. No FDG-avid pelvic sidewall lymphadenopathy is seen. Tiny nonspecific bilateral inguinal lymph nodes demonstrate no focal FDG uptake. Musculoskeletal: No destructive or FDG-avid osseous lesions are seen. Postoperative changes in the posterior cervical spine are noted. IMPRESSION: 1. Partially necrotic kassi mass in the right level 2A station of the neck demonstrates marked hypermetabolism, compatible with provided history of lymphoma. 2. There are multiple tiny bilateral cervical lymph nodes that are too small to accurately characterize with PET. 3. No FDG-avid lesions identified elsewhere. [id number] Performing Organization Address City/State/Zipcode Phone Number [facility] [address] [place] [phone] * POC glucose (09/12/2017 11:13 AM CDT) POC glucose 104 (H) 65 - 99 mg/dL [facility] DEPARTMENT OF Comment: PATHOLOGY AND No Action Needed GENOMIC MEDICINE Meter ID: [id number] Physician Office Assistant: Rachel Performing Organization Address City/State/Zipcode Phone Number [facility] DEPARTMENT OF [address] [place] [phone] PATHOLOGY AND GENOMIC MEDICINE after 08/06/2017 Insurance Payer Benefit Subscriber ID Type Phone Address Plan / Group BCBS BCBS xxxxxxxxxxxxxxx PPO CHOICE PPO/HANNAH HOLGUIN [address] [place] [address] (Home) [place] [address] Advance Directives Patient has advance care planning documents on file. For more information, lorena alves contact: José Miguel Valentin [address] [place] [address]
--- OUTSIDE RECORDS SUMMARY | 2018-08-07 06:32 | XMS REPORT | Summary of Care ---
Author Author [facility] Outpatient Imaging [facility] Outpatient Imaging [facility] Address Unknown Phone Unavailable Encounter HQ Encntr_alias(FIN) [id number] Date(s): 11/30/16 - 11/30/16 [facility] Outpatient Imaging [facility] [address] [place], [place] [address]- Discharge Disposition: Home or Self Care Attending [...]
--- OUTSIDE RECORDS SUMMARY | 2018-08-07 06:33 | XMS REPORT | Summary of Care ---
Author Author [facility] Outpatient Imaging [facility] Outpatient Imaging [facility] Address Unknown Phone Unavailable Encounter HQ Encntr_alias(FIN) [id number] Date(s): 08/04/17 - 08/04/17 [facility] Outpatient Imaging [facility] [address] [place], [place] [address]- Encounter Diagnosis Spinal stenosis, cervical region (Final) - 08/09/17 Discharge Disposition: Home or Self Care Attending Physician: Ty Crisostomo MD Vital Signs No data available for this section Problem List No data available for this section Allergies, Adverse Reactions, Alerts No data available for this section Medications No data available for this section Results No data available for this section Immunizations No data available for this section Procedures No data available for this section Social History No data available for this section Assessment and Plan No data available for this section
--- OUTSIDE RECORDS SUMMARY | 2018-08-07 06:33 | XMS REPORT | Summary of Care ---
Author Author [facility] Organization [facility] Address Unknown Phone Unavailable Encounter HQ Encntr_[place](FIN) [id number] Date(s): 08/15/17 - 08/16/17 [facility] Sp[facility] [address] [facility] [address] [phone] Vital Signs No data available for this section Problem List Condition Effective Dates Status Health Status Informant Neck pain, Active chronic(Confirmed) Lumbar Active pain(Confirmed) Obesity(Confirmed) Active Allergies, Adverse Reactions, Alerts Substance Reaction Severity Status NKDA Active Medications No data available for this section Results No data available for this section Immunizations No data available for this section Procedures Procedure Date Related Diagnosis Body Site Status C5-T1 laminoplasty1 02/27/17 Completed section2 Completed TL - Tubal ligation Completed 1C5-T1 laminoplasty [address] Social History Social History Type Response Substance Abuse Use: None. Exercise Exercise duration: 0. Employment/School Status: Unemployed. Alcohol Past Smoking Status Never smoker; Exposure to Tobacco Smoke None; Cigarette Smoking Last 365 Days No; Reg Smoking Cessation Counseling No entered on: 07/19/17 Assessment and Plan No data available for this section
--- OUTSIDE RECORDS SUMMARY | 2018-08-07 06:33 | XMS REPORT | Summary of Care ---
Author Author [facility] Organization [facility] Address Unknown Phone Unavailable Encounter HQ Encntr_[place](FIN) [id number] Date(s): 05/25/17 - 05/25/17 [facility]patient [facility] [address] [place], [place] [address]- Discharge Disposition: Home or Self Care Attending [...] Procedures Procedure Date Related Diagnosis Body Site C5-T1 laminoplasty1 02/27/17 section2 TL - Tubal ligation 1C5-T1 laminoplasty Social History Social History Type Response Substance Abuse Use: None. Exercise Exercise duration: 0. Employment/School Status: Unemployed. Alcohol Past Smoking Status Never smoker; Exposure to Tobacco Smoke None; Cigarette Smoking Last 365 Days No; Reg Smoking Cessation Counseling No Assessment and Plan No data available for this section
--- OUTSIDE RECORDS SUMMARY | 2018-08-07 06:33 | XMS REPORT | Summary of Care ---
Author Author [facility] Organization [facility] Address Unknown Phone Unavailable Encounter CLAUDIA Eagle(APOLINAR) [phone] Date(s): 02/27/17 - 02/28/17 [facility] [address] [place] [address]- [phone] Final: Spinal stenosis, cervical region Discharge Disposition: Home or Self Care Attending Physician: Ty Crisostomo MD Admitting Physician: Ty Crisostomo MD Referring Physician: Ty Crisostomo MD Vital Signs 1 2 3 Most recent to oldest [Reference Range]: 165.1 cm (02/22/17 1:10 PM) 165.1 cm (02/03/17 7:10 PM) Height 98.1 DegF (02/28/17 1:32 PM) 98 DegF (02/28/17 1:32 PM) 98.1 DegF (02/28/17 11:23 AM) Temperature Oral [96.4-99.1 DegF] 128/75 mmHg (02/28/17 1:32 PM) 118/66 mmHg (02/28/17 1:32 PM) 116/65 mmHg (02/28/17 11:23 AM) Blood Pressure [90-140/60-90 mmHg] 17 BRMIN (02/28/17 1:32 PM) 18 BRMIN (02/28/17 1:32 PM) 17 BRMIN (02/28/17 11:23 AM) Respiratory Rate [14-20 BRMIN] 93 bpm (02/28/17 1:32 PM) 86 bpm (02/28/17 1:32 PM) 80 bpm (02/28/17 11:23 AM) Peripheral Pulse Rate [60-100 bpm] 97.727 kg (02/22/17 1:10 PM) 90.909 kg (02/03/17 7:10 PM) Weight 35.85 m2 (02/22/17 1:10 PM) 33.35 m2 (02/03/17 7:10 PM) Body Mass Index Problem List Condition Effective Dates Status Health Status Informant Neck pain, Active chronic(Confirmed) Lumbar Active pain(Confirmed) Obesity(Confirmed) Active Allergies, Adverse Reactions, Alerts Substance Reaction Severity Status NKDA Active Medications acetaminophen 650 mg, 2 tab, Route: PO, Drug form: TAB, Q4H, Dosing Weight 97.727, kg, PRN Oth er -See Comment, Start date: 02/27/17 18:01:00 CDT, Duration: 30 day, Stop date: 03/29/17 18:00:00 CDT Notes: Do not exceed 4 gm/day. (Same as: Tylenol) Start Date: 02/27/17 Stop Date: 02/28/17 Status: Discontinued ANES acetaminophen 1,000 mg, Route: PO, Drug form: TAB, ONCE, Dosing Weight 97.727, kg, PRN Pain Sc ore 1-3, Start date: 02/27/17 11:56:00 CDT, Duration: 1 doses or times, Stop andrew e: Limited # of times Start Date: 02/27/17 Stop Date: 02/27/17 Status: Discontinued ANES acetaminophen 1,000 mg, 2 tab, Route: PO, Drug form: TAB, ONCE, Dosing Weight 97.727, kg, PRN Pain Score 1-3, Start date: 02/27/17 12:01:00 CDT, Duration: 1 doses or times, S top date: Limited # of times Notes: Max acetaminophen 4000 mg/day (4 gm/day). (Same as: Tylenol Extra Streng th) Start Date: 02/27/17 Stop Date: 02/27/17 Status: Discontinued ANES albuterol 0.083% inhalation solution 2.49 mg, Route: NEB, Q20Min, Dosing Weight 97.727, kg, PRN Wheezing, Priority: S TAT, Start date: 02/27/17 11:56:00 CDT, Duration: 30 day, Stop date: 03/29/17 11 :55:00 CDT Start Date: 02/27/17 Stop Date: 02/27/17 Status: Discontinued ANES albuterol 0.083% inhalation solution 2.49 mg, 3 mL, Route: NEB, Drug form: SOLN, Q20Min, Dosing Weight 97.727, kg, OH N Wheezing, Priority: STAT, Start date: 02/27/17 12:01:00 CDT, Stop date: 23:00:00 CDT Notes: SEE RT DOCUMENTATION (Same as: Proventil) Start Date: 02/27/17 Stop Date: 02/27/17 Status: Discontinued ANES flumazenil 0.2 mg, Route: IVP, PRN, Dosing Weight 97.727, kg, PRN Benzodiazepine Reversal, Initial dose, Start date: 02/27/17 11:56:00 CDT, Duration: 30 day, Stop date: 11:55:00 CDT Start Date: 02/27/17 Stop Date: 02/27/17 Status: Discontinued ANES flumazenil 0.2 mg, 2 mL, Route: IVP, Drug form: INJ, PRN, Dosing Weight 97.727, kg, PRN Manny zodiazepine Reversal, Initial dose, Start date: 02/27/17 12:01:00 CDT, Stop date : 02/27/17 23:00:00 CDT Notes: (Same as: Romazicon) Start Date: 02/27/17 Stop Date: 02/27/17 Status: Discontinued ANES hydrALAZINE 10 mg, Route: IVP, Q20Min, Dosing Weight 97.727, kg, PRN Elevated BP, Start date : 02/27/17 11:56:00 CDT, Duration: 2 doses or times, Stop date: Limited # of steve es Start Date: 02/27/17 Stop Date: 02/27/17 Status: Discontinued ANES hydrALAZINE 10 mg, 0.5 mL, Route: IVP, Drug form: INJ, Q20Min, Dosing Weight 97.727, kg, PRN Elevated BP, Start date: 02/27/17 12:01:00 CDT, Duration: 2 doses or times, Stop date: 02/27/17 23:00:00 CDT Notes: (Same as: Apresoline)Push over 5 minutes Start Date: 02/27/17 Stop Date: 02/27/17 Status: Discontinued ANES HYDROmorphone 0.5 mg, Route: IVP, Q5Min, Dosing Weight 97.727, kg, PRN Pain Score 7-10, Start date: 02/27/17 11:56:00 CDT, Duration: 4 doses or times, Stop date: Limited # of times Start Date: 02/27/17 Stop Date: 02/27/17 Status: Discontinued ANES HYDROmorphone 0.5 mg, 0.5 mL, Route: IVP, Drug form: INJ, Q5Min, Dosing Weight 97.727, kg, PRN Pain Score 7-10, Start date: 02/27/17 12:01:00 CDT, Duration: 4 doses or times, Stop date: 02/27/17 23:00:00 CDT Notes: Same as: Dilaudid Start Date: 02/27/17 Stop Date: 02/27/17 Status: Discontinued ANES ketOROLAC 30 mg, Route: IVP, ONCE, Dosing Weight 97.727, kg, Start date: 02/27/17 11:56:00 CDT, Duration: 1 doses or times, Stop date: 02/27/17 11:56:00 CDT Start Date: 02/27/17 Stop Date: 02/27/17 Status: Discontinued ANES ketOROLAC 30 mg, 1 mL, Route: IVP, Drug form: INJ, ONCE, Dosing Weight 97.727, kg, Start d ate: 02/27/17 12:01:00 CDT, Duration: 1 doses or times, Stop date: 02/27/17 12:0 1:00 CDT Notes: (Same as:Toradol) IV bolus must be given >15 seconds. Give IM administration slowly and deeply into the muscle.Not for use > 4 days MEDICATION WASTE Product Size: 30 mgProduct Wasted: ___ mg Start Date: 02/27/17 Stop Date: 02/27/17 Status: Discontinued ANES labetalol 10 mg, Route: IVP, Q5Min, Dosing Weight 97.727, kg, PRN Elevated BP, Start date: 02/27/17 11:56:00 CDT, Duration: 5 doses or times, Stop date: Limited # of times Start Date: 02/27/17 Stop Date: 02/27/17 Status: Discontinued ANES labetalol 10 mg, 2 mL, Route: IVP, Drug form: INJ, Q5Min, Dosing Weight 97.727, kg, PRN El evated BP, Start date: 02/27/17 12:01:00 CDT, Duration: 5 doses or times, Stop d ate: 02/27/17 23:00:00 CDT Notes: (Same as: Normodyne, Trandate)Push over 2 minutes Give bolus over 2-3 mi nutes. Start Date: 02/27/17 Stop Date: 02/27/17 Status: Discontinued ANES meperidine 12.5 mg, Route: IVP, Q30Min, Dosing Weight 97.727, kg, PRN Other -See Comment, F or shivering, Start date: 02/27/17 11:56:00 CDT, Duration: 2 doses or times, Sto p date: Limited # of times Start Date: 02/27/17 Stop Date: 02/27/17 Status: Discontinued ANES meperidine 12.5 mg, 0.5 mL, Route: IVP, Drug form: INJ, Q30Min, Dosing Weight 97.727, kg, P RN Other -See Comment, For shivering, Start date: 02/27/17 12:01:00 CDT, Duratio n: 2 doses or times, Stop date: 02/27/17 23:00:00 CDT Notes: (Same as: Demerol) "Use Precaution in Elderly, Seizure disorders, and Re nal impairment" Start Date: 02/27/17 Stop Date: 02/27/17 Status: Discontinued ANES morphine Sulfate 2 mg, Route: IVP, Q5Min, Dosing Weight 97.727, kg, PRN Pain Score 4-6, Start andrew e: 02/27/17 11:56:00 CDT, Duration: 5 doses or times, Stop date: Limited # of ti mes Start Date: 02/27/17 Stop Date: 02/27/17 Status: Discontinued ANES morphine Sulfate 4 mg, Route: IVP, Q5Min, Dosing Weight 97.727, kg, PRN Pain Score 7-10, Start da te: 02/27/17 11:56:00 CDT, Duration: 3 doses or times, Stop date: Limited # of t imes Start Date: 02/27/17 Stop Date: 02/27/17 Status: Discontinued ANES morphine Sulfate 2 mg, 1 mL, Route: IVP, Drug form: SOLN, Q5Min, Dosing Weight 97.727, kg, PRN Pa in Score 4-6, Start date: 02/27/17 12:01:00 CDT, Duration: 5 doses or times, Sto p date: 02/27/17 23:00:00 CDT Start Date: 02/27/17 Stop Date: 02/27/17 Status: Discontinued ANES morphine Sulfate 4 mg, 2 mL, Route: IVP, Drug form: SOLN, Q5Min, Dosing Weight 97.727, kg, PRN Pa in Score 7-10, Start date: 02/27/17 12:01:00 CDT, Duration: 3 doses or times, St op date: 02/27/17 23:00:00 CDT Start Date: 02/27/17 Stop Date: 02/27/17 Status: Discontinued ANES naloxone 0.4 mg, Route: IVP, Q2MIN, Dosing Weight 97.727, kg, PRN Narcotic Reversal, Star t date: 02/27/17 11:56:00 CDT, Duration: 8 doses or times, Stop date: Limited # of times Start Date: 02/27/17 Stop Date: 02/27/17 Status: Discontinued ANES naloxone 0.4 mg, 1 mL, Route: IVP, Drug form: INJ, Q2MIN, Dosing Weight 97.727, kg, PRN N arcotic Reversal, Start date: 02/27/17 12:01:00 CDT, Duration: 8 doses or times, Stop date: 02/27/17 23:00:00 CDT Notes: Same as Narcan Start Date: 02/27/17 Stop Date: 02/27/17 Status: Discontinued ANES ondansetron 4 mg, Route: IVP, ONCE, Dosing Weight 97.727, kg, PRN Nausea & Vomiting, Start date: 02/27/17 11:56:00 CDT Start Date: 02/27/17 Stop Date: 02/27/17 Status: Discontinued ANES ondansetron 4 mg, 2 mL, Route: IVP, Drug form: INJ, ONCE, Dosing Weight 97.727, kg, PRN Naus ea & Vomiting, Start date: 02/27/17 12:01:00 CDT Notes: (Same as: Дмитрий) MEDICATION WASTE Product Size: 4 mgProduct Was aminata: ___ mg Start Date: 02/27/17 Stop Date: 02/27/17 Status: Discontinued ANES oxyCODONE 10 mg, Route: PO, Drug form: TAB, Q4H, Dosing Weight 97.727, kg, PRN Pain Score 7-10, Start date: 02/27/17 11:56:00 CDT, Duration: 30 day, Stop date: 03/29/17 1 1:55:00 CDT Start Date: 02/27/17 Stop Date: 02/27/17 Status: Discontinued ANES oxyCODONE 5 mg, Route: PO, Drug form: TAB, Q4H, Dosing Weight 97.727, kg, PRN Pain Score 4 -6, Start date: 02/27/17 11:56:00 CDT, Duration: 30 day, Stop date: 03/29/17 11: 55:00 CDT Start Date: 02/27/17 Stop Date: 02/27/17 Status: Discontinued ceFAZolin 2 gm, 50 mL, Route: IVPB, Drug form: INJ, ONCALL, Start date: 02/27/17 6:00:00 C DT, Duration: 12 hr, Stop date: 02/27/17 17:59:00 CDT, ABX Indication: Surgical Prophylaxis Start Date: 02/27/17 Stop Date: 02/27/17 Status: Completed ceFAZolin (ANES) (ANES) Route: IV, Drug form: INJ, Start date: 02/27/17 15:34:00 CDT, Stop date: 7 16:34:00 CDT Start Date: 02/27/17 Stop Date: 02/27/17 Status: Completed ceFAZolin (SCIP) + sodium chloride 0.9% INJ 100 mL 1 gm, Route: IVPB, [id number], Dosing Weight 97.727, kg, Start date: 02/27/17 23:00: 00 CDT, Duration: 1 doses or times, Stop date: 02/27/17 23:00:00 CDT, ABX Indica tion: Surgical Prophylaxis Notes: (Same As: Marbin Frederick) MEDICATION WASTE Product Size: 1000 mgP roduct Wasted: ___ mg Start Date: 02/27/17 Stop Date: 02/27/17 Status: Completed Cepacol Sore Throat 15 mg-3.6 mg mucous membrane lozenge 1 lozenge, Route: MUCOUS MEM, Drug Form: DMITRI, Dosing Weight 97.727, kg, Q4H, PRN Sore Throat, Start date: 02/27/17 18:01:00 CDT, Duration: 30 day, Stop date: 18:00:00 CDT Notes: Same as: Cepacol Start Date: 02/27/17 Stop Date: 02/28/17 Status: Discontinued dexamethasone (ANES) Route: IV, Drug form: INJ, ONCE, Stop date: 02/27/17 16:42:00 CDT Start Date: 02/27/17 Stop Date: 02/27/17 Status: Completed diazepam 10 mg, 2 mL, Route: IVP, Drug form: INJ, Q4H, Dosing Weight 97.727, kg, PRN Othe r -See Comment, Start date: 02/27/17 18:01:00 CDT, Duration: 7 day, Stop date: 0 03/06/17 18:00:00 CDT, severe muscle spasms Notes: (Same as: Valium)WASTE: F/P - Black; E - White/Blue Start Date: 02/27/17 Stop Date: 02/28/17 Status: Discontinued diazepam 10 mg, 2 tab, Route: PO, Drug form: TAB, Q4H, Dosing Weight 97.727, kg, PRN Othe r -See Comment, Start date: 02/27/17 18:01:00 CDT, Duration: 3 day, Stop date: 0 03/02/17 18:00:00 CDT, severe muscle spasms Notes: (Same as: Valium) Start Date: 02/27/17 Stop Date: 02/28/17 Status: Discontinued diazepam 5 mg, 1 tab, Route: PO, Drug form: TAB, Q4H, Dosing Weight 97.727, kg, PRN Other -See Comment, Start date: 02/27/17 18:01:00 CDT, Duration: 3 day, Stop date: 18:00:00 CDT, moderate muscle spasms Notes: (Same as: Valium) Start Date: 02/27/17 Stop Date: 02/28/17 Status: Discontinued diazepam 5 mg, 1 mL, Route: IVP, Drug form: INJ, Q4H, Dosing Weight 97.727, kg, PRN Other -See Comment, Start date: 02/27/17 18:01:00 CDT, Duration: 7 day, Stop date: 18:00:00 CDT, moderate muscle spasms Notes: (Same as: Valium)WASTE: F/P - Black; E - White/Blue Start Date: 02/27/17 Stop Date: 02/28/17 Status: Discontinued Dilaudid (ANES) Route: IV, Drug form: INJ, ONCE, Stop date: 02/27/17 16:32:00 CDT Start Date: 02/27/17 Stop Date: 02/27/17 Status: Completed docusate 100 mg, 1 cap, Route: PO, Drug form: CAP, BID, Dosing Weight 97.727, kg, Start d ate: 02/28/17 9:00:00 CDT, Duration: 30 day, Stop date: 03/29/17 17:00:00 CDT Notes: (Same as: Colace) (Do Not Crush) Start Date: 02/28/17 Stop Date: 02/28/17 Status: Discontinued fentaNYL (ANES) Route: IV, Drug form: INJ, ONCE, Stop date: 02/27/17 16:32:00 CDT Start Date: 02/27/17 Stop Date: 02/27/17 Status: Completed heparin 5,000 unit, 1 mL, Route: SUB-Q, Drug form: INJ, [id number], Dosing Weight 97.727, k g, Start date: 02/28/17 6:00:00 CDT, Duration: 30 day, Stop date: 03/29/17 18:00 :00 CDT Notes: porcine heparin Start Date: 02/28/17 Stop Date: 02/28/17 Status: Discontinued hydromorphone 2 mg, 2 mL, Route: IV, Drug form: INJ, Q4H, Dosing Weight 97.727, kg, PRN Pain S core 7-10, Start date: 02/27/17 18:01:00 CDT, Duration: 3 day, Stop date: 18:00:00 CDT Notes: Same as: Dilaudid Start Date: 02/27/17 Stop Date: 02/28/17 Status: Discontinued hydromorphone 8 mg, 4 tab, Route: PO, Drug form: TAB, Q4H, Dosing Weight 97.727, kg, PRN Pain Score 7-10, Start date: 02/27/17 18:01:00 CDT, Duration: 3 day, Stop date: 03/02 18:00:00 CDT Notes: (Same as: Dilaudid) Start Date: 02/27/17 Stop Date: 02/28/17 Status: Discontinued hydromorphone 4 mg, 2 tab, Route: PO, Drug form: TAB, Q4H, Dosing Weight 97.727, kg, PRN Pain Score 4-6, Start date: 02/27/17 18:01:00 CDT, Duration: 3 day, Stop date: 18:00:00 CDT Notes: (Same as: Dilaudid) Start Date: 02/27/17 Stop Date: 02/28/17 Status: Discontinued hydromorphone 1 mg, 1 mL, Route: IV, Drug form: INJ, Q4H, Dosing Weight 97.727, kg, PRN Pain S core 4-6, Start date: 02/27/17 18:01:00 CDT, Duration: 3 day, Stop date: 7 18:00:00 CDT Notes: Same as: Dilaudid Start Date: 02/27/17 Stop Date: 02/28/17 Status: Discontinued Lactated Ringers 1,000 mL 1,000 mL, Rate: 70 ml/hr, Infuse over: 14.3 hr, Route: IV, Dosing Weight 97.727 kg, Total Volume: 1,000, Start date: 02/27/17 6:00:00 CDT, Duration: 12 hr, Stop date: 02/27/17 17:59:00 CDT Start Date: 02/27/17 Stop Date: 02/27/17 Status: Completed Lactated Ringers 500 mL 500 mL, Rate: 125 ml/hr, Infuse over: 4 hr, Route: IV, Dosing Weight 97.727 kg, Total Volume: 500, Start date: 02/27/17 18:01:00 CDT, Duration: 30 day, Stop andrew e: 03/29/17 18:00:00 CDT Start Date: 02/27/17 Stop Date: 02/28/17 Status: Discontinued lidocaine (ANES) Route: IV, Drug form: INJ, ONCE, Stop date: 02/27/17 16:32:00 CDT Start Date: 02/27/17 Stop Date: 02/27/17 Status: Completed LR 1000 mL INJ (ANES) Route: IV, Total Volume: 1,000, Start date: 02/27/17 15:34:00 CDT, Stop date: 16:34:00 CDT Start Date: 02/27/17 Stop Date: 02/27/17 Status: Completed midazolam (ANES) Route: IV, Drug form: SOLN, ONCE, Stop date: 02/27/17 16:32:00 CDT Start Date: 02/27/17 Stop Date: 02/27/17 Status: Completed Naprosyn 500 mg oral tablet 1,000 mg=2 tab, PO, BID Start Date: 02/22/17 Stop Date: 02/28/17 Status: Discontinued [place] 5/325 oral tablet 2 tab, Route: PO, Drug Form: TAB, Dosing Weight 97.727, kg, ONCE, PRN Pain Score 4-6, Start date: 02/27/17 11:56:00 CDT Start Date: 02/27/17 Stop Date: 02/27/17 Status: Discontinued ondansetron (ANES) Route: IV, Drug form: INJ, ONCE, Stop date: 02/27/17 16:42:00 CDT Start Date: 02/27/17 Stop Date: 02/27/17 Status: Completed pantoprazole 40 mg, 1 tab, Route: PO, Drug form: ECTAB, Before Dinner, Dosing Weight 97.727, kg, Start date: 02/28/17 16:30:00 CDT, Duration: 30 day, Stop date: 03/29/17 16: 30:00 CDT Notes: Tablet should not be chewed or crushed.(Same as: Protonix) Start Date: 02/28/17 Stop Date: 02/28/17 Status: Canceled Phenergan + sodium chloride 0.9% INJ 50 mL 25 mg, 1 mL, Route: IVPB, Q4H, Dosing Weight 97.727, kg, PRN Nausea & Vomiting, If N/V refractory to Zofran and Reglan, patient may be given Phenergan IVP per Dr. Hawley, Start date: 02/27/17 18:01:00 CDT, Duration: 30 day, Stop date: 03/29/17 18:00:00... Notes: Do not give IV push. (Same as: Phenergan) Start Date: 02/27/17 Stop Date: 02/28/17 Status: Discontinued propofol (ANES) Route: IV, Drug form: INJ, ONCE, Stop date: 02/27/17 16:32:00 CDT Start Date: 02/27/17 Stop Date: 02/27/17 Status: Completed Reglan 10 mg, 1 tab, Route: PO, Drug form: TAB, Q12H, Dosing Weight 97.727, kg, PRN Oth er -See Comment, Start date: 02/27/17 18:01:00 CDT, Duration: 30 day, Stop date: 03/29/17 18:00:00 CDT, nausea or vomiting if patient refractory to ondansetron Notes: (Same as: Reglan) Take 30 min before meals Start Date: 02/27/17 Stop Date: 02/28/17 Status: Discontinued Reglan 10 mg, 2 mL, Route: IVP, Drug form: INJ, Q12H, Dosing Weight 97.727, kg, PRN Oth er -See Comment, Start date: 02/27/17 18:01:00 CDT, Duration: 30 day, Stop date: 03/29/17 18:00:00 CDT, nausea or vomiting if patient refractory to ondansetron Notes: (Same as: Reglan) Start Date: 02/27/17 Stop Date: 02/28/17 Status: Discontinued tramadol 100 mg oral tablet, extended release 100 mg, 1 tab, Route: PO, Drug form: ERTAB, PRN, PRN Pain Score 6-10, Start date : 02/27/17 11:56:00 CDT, Duration: 30 day, Stop date: 03/29/17 11:55:00 CDT Start Date: 02/27/17 Stop Date: 02/27/17 Status: Discontinued tramadol 50 mg oral tablet 50 mg, Route: PO, Drug form: TAB, ONCE, Dosing Weight 97.727, kg, PRN Pain Score 1-3, Start date: 02/27/17 11:56:00 CDT Start Date: 02/27/17 Stop Date: 02/27/17 Status: Discontinued Tylenol with Codeine #3 oral tablet 2 tab, Route: PO, Drug Form: TAB, Dosing Weight 97.727, kg, ONCE, PRN Pain Score 4-6, Start date: 02/27/17 11:56:00 CDT Start Date: 02/27/17 Stop Date: 02/27/17 Status: Discontinued Zofran 4 mg, Route: IVP, Drug form: INJ, Q4H, Dosing Weight 97.727, kg, PRN as needed f or nausea/vomiting, If N/V refractory to first dose of Zofran IVP, patient may r eceive an additional 4mg IVP dose of Zofran per Dr. Hawley, Start date: 02/27/17 18:01:00 CD... Start Date: 02/27/17 Stop Date: 02/27/17 Status: Deleted Zofran 4 mg, 2 mL, Route: IVP, Drug form: INJ, Q4H, Dosing Weight 97.727, kg, PRN Nause a, Start date: 02/27/17 18:01:00 CDT, Duration: 30 day, Stop date: 03/29/17 18:0 0:00 CDT Notes: (Same as: Zofran) MEDICATION WASTE Product Size: 4 mgProduct Was aminata: ___ mg Start Date: 02/27/17 Stop Date: 02/28/17 Status: Discontinued Results BLOOD BANK RESULTS Most recent to 1 oldest [Reference Range]: ABO/Rh O POS *Unknown* (02/22/17 1:55 PM) Antibody Scrn Negative (02/22/17 1:55 PM) ELECTROLYTES Most recent to 1 oldest [Reference Range]: Sodium Lvl [135-145 137 mEq/L mEq/L] (02/22/17 1:55 PM) Potassium Lvl 3.7 mEq/L [3.5-5.1 mEq/L] (02/22/17 1:55 PM) Chloride Lvl [95-109 104 mEq/L mEq/L] (02/22/17 1:55 PM) CO2 [24-32 mEq/L] 25 mEq/L (02/22/17 1:55 PM) AGAP [10.0-20.0 11.7 mEq/L mEq/L] (02/22/17 1:55 PM) CHEM PANEL Most recent to 1 oldest [Reference Range]: Creatinine Lvl 0.53 mg/dL [0.50-1.40 mg/dL] (02/22/17 1:55 PM) eGFR 122 mL/min/1.73m2 1 *NA* (02/22/17 1:55 PM) BUN [7-22 mg/dL] 11 mg/dL (02/22/17 1:55 PM) Glucose Lvl [70-99 101 mg/dL mg/dL] *HI* (02/22/17 1:55 PM) Calcium Lvl 9.1 mg/dL [8.5-10.5 mg/dL] (02/22/17 1:55 PM) 1Result Comment: The eGFR is calculated using the [...] from the National Kid[employer] Disease Education Program ( NKDEP) which additionally recommends that when the eGFR is used in patients with extremes of body mass index for purposes of drug dosing, the eGFR should be mul tiplied by the estimated BMI. URINE CHEM Most recent to 1 oldest [Reference Range]: U Preg [Negative] Negative (02/22/17 1:55 PM) URINE AND STOOL Most recent to 1 oldest [Reference Range]: UA Turbidity [Clear] Slight *ABN* (02/22/17 1:55 PM) UA Color [Yellow] Yellow *NA* (02/22/17 1:55 PM) UA pH [5.0-8.0] 6.0 (02/22/17 1:55 PM) UA Spec Grav 1.020 [<=1.030] (02/22/17 1:55 PM) UA Glucose [Negative Negative mg/dL mg/dL] *NA* (02/22/17 1:55 PM) UA Blood [Negative] Negative (02/22/17 1:55 PM) UA Ketones [Negative Negative mg/dL mg/dL] *NA* (02/22/17 1:55 PM) UA Protein [Negative Negative mg/dL mg/dL] (02/22/17 1:55 PM) UA Urobilinogen <=1.0 mg/dL [0.1-1.0 mg/dL] *NA* (02/22/17 1:55 PM) UA Bili [Negative] Negative *NA* (02/22/17 1:55 PM) UA Leuk Est Negative [Negative] (02/22/17 1:55 PM) UA Nitrite Negative [Negative] (02/22/17 1:55 PM) Micro? Performed *NA* (02/22/17 1:55 PM) HEMATOLOGY Most recent to 1 oldest [Reference Range]: WBC [3.7-10.4 K/CMM] 9.7 K/CMM (02/22/17 1:55 PM) RBC [4.20-5.40 4.49 M/CMM M/CMM] (02/22/17 1:55 PM) Hgb [12.0-16.0 g/dL] 12.5 g/dL (02/22/17 1:55 PM) Hct [36.0-48.0 %] 37.1 % (02/22/17 1:55 PM) MCV [80.0-98.0 fL] 82.7 fL (02/22/17 1:55 PM) MCH [27.0-31.0 pg] 27.8 pg (02/22/17 1:55 PM) MCHC [32.0-36.0 33.7 g/dL g/dL] (02/22/17 1:55 PM) RDW [11.5-14.5 %] 14.3 % (02/22/17 1:55 PM) Platelet [133-450 273 K/CMM K/CMM] (02/22/17 1:55 PM) MPV [7.4-10.4 fL] 9.0 fL (02/22/17 1:55 PM) Segs [45.0-75.0 %] 63.4 % (02/22/17 1:55 PM) Lymphocytes 27.4 % [20.0-40.0 %] (02/22/17 1:55 PM) Monocytes [2.0-12.0 6.5 % %] (02/22/17 1:55 PM) Eosinophils [0.0-4.0 2.3 % %] (02/22/17 1:55 PM) Basophils [0.0-1.0 0.4 % %] (02/22/17 1:55 PM) Segs-Bands # 6.1 K/CMM [1.5-8.1 K/CMM] (02/22/17 1:55 PM) Lymphocytes # 2.6 K/CMM [1.0-5.5 K/CMM] (02/22/17 1:55 PM) Monocytes # [0.0-0.8 0.6 K/CMM K/CMM] (02/22/17 1:55 PM) Eosinophils # 0.2 K/CMM [0.0-0.5 K/CMM] (02/22/17 1:55 PM) PT [12.0-14.7 14.2 seconds seconds] (02/22/17 1:55 PM) INR [0.85-1.17] 1.08 (02/22/17 1:55 PM) PTT [22.9-35.8 30.0 seconds seconds] (02/22/17 1:55 PM) Immunizations No data available for this section Procedures Procedure Date Related Diagnosis Body Site section1 TL - Tubal ligation 57582 Social History Social History Type Response Substance Abuse Use: None. Exercise Exercise duration: 0. Employment/School Status: Unemployed. Alcohol Past Smoking Status Never smoker; Exposure to Tobacco Smoke None; Cigarette Smoking Last 365 Days No; Reg Smoking Cessation Counseling No Assessment and Plan Extracted from: Title: Discharge Author: Meri Angel NP Date: 02/28/17 HOSPITAL COURSE: The patient is a pleasant 36 year old female who presented to [facility] on 01/09/2017 to undergo surgical procedure secondary to cervical stenosis and cervical radiculopathy, and increasing weakness. The patient underwent a C5, C6, C7, T1 laminoplasty on 02/27/2017. The patient tolerated the procedure well and was doing well on postoperative day #1 with improvement of hernekc and left arm pain. She denies any arm weakness or numbness otherwise. The patient is medically cleared to discharge home today, drain was removed without difficulty. The patient was pleased with her surgical outcome. ROS Constitutional Symptoms: no fever, no weight loss, no weight gain, no fatigue, no malaise Eyes: no diplopia, no blurred vision, no redness, no discharge, no loss of vision Ears, Nose, Mouth, Throat: no dysphagia, no odynophagia, no otalgia, no deafness, no rhinorrhea Cardiovascular: no chest pain, no SOB, no HILLIARD, no orthopnea, no PND, exercise tolerated, no palpitations Respiratory: same as CVS, no cough, no hemoptysis Gastrointestinal: no NVD, no BPR, no dark stool, no constipation, no abdominal pain Genitourinary: no dysuria, no frequency, no urgency, no nocturia, no incontinence Musculoskeletal: no arthralgia, no myalgia, no stiffness Integumentary: surgical incision to posterior neck with dressing and chelo, drain removed Neurological: no weakness, no headache, no seizure, no dizziness, numbness and tingling to left arm resolved after surgery Psychiatric: no anxiety, no depression, no insomnia Endocrine: no polyuria, no polydipsia, no fatigue, no weight loss, no weight gain, no cold or heat intolerance, no palpitations Hematologic/Lymphatic: no bleeding, no bruising, no edema, no lumps (axilla groin neck) Allergic/Immunologic: no rash, no allergies, no fever, no chills PHYSICAL EXAM General: No acute distress. Skin: Warm, dry, intact, no rash. Surgical incision without infection, site is clean, dry and intact. Head: Atraumatic. Neck: Trachea midline, no JVD. Eye: Extraocular movements are intact, vision unchanged. Ears, nose, mouth and throat: Mouth: Dry mucous membranes. Cardiovascular: Normal peripheral perfusion. Respiratory: Lungs are clear to auscultation, respirations are non-labored, breath sounds are equal. Gastrointestinal: Non distended. Back: Nontender, Normal range of motion, Normal alignment. Musculoskeletal: Normal ROM, normal strength. Neurological: Alert and oriented to person, place, time, and situation, No focal neurological deficit observed, normal sensory observed, normal motor observed, normal speech observed. Psychiatric: Cooperative, appropriate mood & affect, normal judgment. Gait: Ambulating independantly with no assistive device DISCHARGE INFORMATION: Patient to be discharged home with a cervical collar to wear when walking around and in the car. She is discharged with the instruction he is not to lift anything heavier than 10 to 15 pounds for 6 weeks postop. The patient is to do activity as tolerated. She is to keep the incision clean and dry, and remove the dressings in 48 hours from surgery and leave open to air. She was encouraged to take her pain medication and muscle relaxants as prescribed, and not to use pain medication while driving. She is to follow up in 2 weeks in the [facility] office for followup, and staple removal. Her incision was clean and dry and intact with chelo in place. The patient may eat a regular diet as tolerated. The drain was removed without difficulty. Questions asked and answered to patient satisfaction. Encouraged to call back if there are any more questions.
--- OUTSIDE RECORDS SUMMARY | 2018-08-07 06:33 | XMS REPORT | Summary of Care ---
Author Author [facility] Neurosurgery [facility] Organization [facility] Neurosurgery [facility] Address Unknown Phone Unavailable Encounter HQ Encntr_[place](FIN) [phone] Date(s): 08/30/17 - 08/30/17 [facility] Neurosurgery [facility] [address] , [address] [place] [address]- [place] [phone] Attending Physician: Ty Crisostomo MD Referring Physician: Emili Ndiaye MD Vital Signs No data available for [...] TL - Tubal ligation Completed 1C5-T1 laminoplasty Social History Social History Type Response Substance Abuse Use: None. Exercise Exercise duration: 0. Employment/School Status: Unemployed. Alcohol Past Smoking Status Never smoker; Exposure to Tobacco Smoke None; Cigarette Smoking Last 365 Days No; Reg Smoking Cessation Counseling No entered on: 07/19/17 Assessment and Plan No data available for this section
--- OUTSIDE RECORDS SUMMARY | 2018-08-07 06:33 | XMS REPORT | Summary of Care ---
Author Author [facility] Organization [facility] Address Unknown Phone Unavailable Encounter HQ Magali_rohan(FIN) [phone] Date(s): 05/10/17 - 06/08/17 [facility] Discharge Disposition: Home or Self Care Attending [...]
--- OUTSIDE RECORDS SUMMARY | 2018-08-07 06:33 | XMS REPORT | Summary of Care ---
Author Author [facility] Neurosurgery [facility] Organization [facility] Neurosurgery [facility] Address Unknown Phone Unavailable Encounter HQ Encntr_alias(FIN) [phone] Date(s): 08/08/17 - 08/09/17 [facility] Neurosurgery [facility] [address] [place] [phone] Vital Signs No data available for this [...] TL - Tubal ligation Completed 1C5-T1 laminoplasty 47807 Social History Social History Type Response Substance Abuse Use: None. Exercise Exercise duration: 0. Employment/School Status: Unemployed. Alcohol Past Smoking Status Never smoker; Exposure to Tobacco Smoke None; Cigarette Smoking Last 365 Days No; Reg Smoking Cessation Counseling No entered on: 07/19/17 Assessment and Plan No data available for this section
--- OUTSIDE RECORDS SUMMARY | 2018-08-07 06:33 | XMS REPORT | Summary of Care ---
Author Author [facility] Neurosurgery [facility] Organization [facility] Neurosurgery [facility] Address Unknown Phone Unavailable Encounter HQ Encntr[facility](FIN) [phone] Date(s): 06/19/17 - 06/20/17 [facility] Neurosurgery [facility] [address] [place] [phone] Vital Signs No data available for this [...] Reg Smoking Cessation Counseling No entered on: 05/23/17 Assessment and Plan No data available for this section
--- OUTSIDE RECORDS SUMMARY | 2018-08-07 06:33 | XMS REPORT | Summary of Care ---
Author Author [facility] Neurosurgery [facility] Organization [facility] Neurosurgery [facility] Address Unknown Phone Unavailable Encounter HQ [place](FIN) [phone] Date(s): 07/19/17 - 07/19/17 [facility] Neurosurgery [facility] [address] , [address] [place] [phone] Discharge Disposition: Home or Self Care Attending Physician: Ty Crisostomo MD Referring Physician: Emili Ndiaye MD Vital Signs Most recent to 1 oldest [Reference Range]: Height 165.1 cm (07/19/17 2:17 PM) Blood Pressure 160/96 mmHg [90-140/60-90 mmHg] *HI* (07/19/17 2:17 PM) Peripheral Pulse 80 bpm Rate [60-100 bpm] (07/19/17 2:17 PM) Weight 90.909 kg (07/19/17 2:17 PM) Body Mass Index 33.35 m2 (07/19/17 2:17 PM) Problem List Condition Effective Dates Status Health Status Informant Neck pain, Active chronic(Confirmed) Lumbar Active pain(Confirmed) Obesity(Confirmed) Active Allergies, Adverse Reactions, Alerts Substance Reaction Severity Status NKDA Active Medications Robaxin-750 oral tablet 750 mg=1 tab, PO, Q6H, PRN Spasms, X 7 day, # 28 tab, 0 Refill(s) Start Date: 07/19/17 Stop Date: 07/26/17 Status: Completed tramadol 50 mg oral tablet 50 mg=1 tab, PO, Q8H, PRN Pain, not to exceed 400 mg/day, X 10 day, # 30 tab, 0 Refill(s) Start Date: 07/19/17 Stop Date: 07/29/17 Status: Completed Results No data available for this section Immunizations No data available for this section Procedures Procedure Date Related Diagnosis Body Site Status C5-T1 laminoplasty1 02/27/17 Completed section2 Completed TL - Tubal ligation Completed 1C5-T1 laminoplasty 41428 Social History Social History Type Response Substance Abuse Use: None. Exercise Exercise duration: 0. Employment/School Status: Unemployed. Alcohol Past Smoking Status Never smoker; Exposure to Tobacco Smoke None; Cigarette Smoking Last 365 Days No; Reg Smoking Cessation Counseling No entered on: 07/19/17 Assessment and Plan No data available for this section
--- OUTSIDE RECORDS SUMMARY | 2018-08-07 06:33 | XMS REPORT | Summary of Care ---
Author Author [facility] Neurosurgery [facility] Organization [facility] Neurosurgery [facility] Address Unknown Phone Unavailable Encounter HQ Encntr_alias(FIN) [phone] Date(s): 07/11/17 - 07/12/17 [facility] Neurosurgery [facility] [address] [place] [address]- [place] [phone] Vital Signs No data available for this [...]
--- OUTSIDE RECORDS SUMMARY | 2018-08-07 06:33 | XMS REPORT | Summary of Care ---
Author Author [facility] Neurosurgery [facility] Organization [facility] Neurosurgery [facility] Address Unknown Phone Unavailable Encounter HQ Encntr_alias(FIN) [phone] Date(s): 06/19/17 - 06/20/17 [facility] Neurosurgery [facility] [address] [place], [place] [address] [phone] Vital Signs No data available for this [...] TL - Tubal ligation Completed 1C5-T1 laminoplasty 61762 Social History Social History Type Response Substance Abuse Use: None. Exercise Exercise duration: 0. Employment/School Status: Unemployed. Alcohol Past Smoking Status Never smoker; Exposure to Tobacco Smoke None; Cigarette Smoking Last 365 Days No; Reg Smoking Cessation Counseling No entered on: 07/19/17 Assessment and Plan No data available for this section
--- OUTSIDE RECORDS SUMMARY | 2018-08-07 06:33 | XMS REPORT | Summary of Care ---
Author Author [facility] Organization [facility] Address Unknown Phone Unavailable Encounter HQ Angr_rohan(FIN) [phone] Date(s): 05/24/17 - 05/24/17 [facility] Neuro[facility] [address] , [address] [place] [phone] Discharge Disposition: Home or Self Care Attending Physician: Ty Crisostomo MD Referring Physician: Emili Ndiaye MD Vital Signs Most recent to 1 oldest [Reference Range]: Blood Pressure 122/80 mmHg [90-140/60-90 mmHg] (05/24/17 9:15 AM) Peripheral Pulse 88 bpm Rate [60-100 bpm] (05/24/17 9:15 AM) Weight 90.909 kg (05/24/17 9:15 AM) Problem List Condition Effective Dates Status Health Status Informant Neck pain, Active chronic(Confirmed) Lumbar Active pain(Confirmed) Obesity(Confirmed) Active Allergies, Adverse Reactions, Alerts Substance Reaction Severity Status NKDA Active Medications No Known Medications Results No data available for this section [...]
--- OUTSIDE RECORDS SUMMARY | 2018-08-07 06:33 | XMS REPORT | Summary of Care ---
Author Author [facility] Neurosurgery [facility] Organization [facility] Neurosurgery [facility] Address Unknown Phone Unavailable Encounter HQ Encntr[facility](FIN) [phone] Date(s): 07/13/17 - 07/14/17 [facility] Neurosurgery [facility] [address] [place] [address]- [place] [phone] Vital Signs No data available for this [...] TL - Tubal ligation Completed 1C5-T1 laminoplasty 95268 Social History Social History Type Response Substance Abuse Use: None. Exercise Exercise duration: 0. Employment/School Status: Unemployed. Alcohol Past Smoking Status Never smoker; Exposure to Tobacco Smoke None; Cigarette Smoking Last 365 Days No; Reg Smoking Cessation Counseling No entered on: 07/19/17 Assessment and Plan No data available for this section
--- OUTSIDE RECORDS SUMMARY | 2018-08-07 06:33 | XMS REPORT | Summary of Care ---
Author Author [facility] Neurosurgery [facility] Organization [facility] Neurosurgery [facility] Address Unknown Phone Unavailable Encounter HQ Encntr_[place](FIN) [phone] Date(s): 08/16/17 - 08/16/17 [facility] Neurosurgery [facility] [address] , [address] [place] [address]- [place] [phone] Attending Physician: Ty Crisostomo MD Referring Physician: [...]
--- OUTSIDE RECORDS SUMMARY | 2018-08-07 06:33 | XMS REPORT | Summary of Care ---
Author Author [facility] Neurosurgery [facility] Organization [facility] Neurosurgery [facility] Address Unknown Phone Unavailable Encounter HQ Encntr_alias(FIN) [phone] Date(s): 06/20/17 - 06/21/17 [facility] Neurosurgery [facility] [address] [place] [address]- [place] [phone] Vital Signs No data available for this [...]
[2018-08-07 10:21] VITALS: BP 132/78
== END | disposition home or self-care (01) ==
LOC: OR 06:29
PROVIDERS: ATTEND Internal Medicine Gastroenterology
DX: K29.70 Gastritis, unspecified, without bleeding (principal); K21.9 Gastro-esophageal reflux disease without esophagitis; R13.10 Dysphagia, unspecified
CPT/HCPCS: 43239; 81025; J2250; J2704